=== PATIENT | female | born 2000 | race Caucasian/White ===

== ENCOUNTER 2020-01-21 10:21 | Observation (INO) | payer OTHER, SELFPAY ==
[2020-01-21 10:54] VITALS: BP 126/76; PULSE 114
[2020-01-21 11:00] VITALS: BP 129/72; PULSE 110
[2020-01-21 11:55] LABS: Add Urine Microscopic? YES; Appearance Urine Cloudy (Clear); Bacteria Urine Trace /hpf; Bilirubin Urine Negative (Negative); Blood Urine 1+ (Negative); Color Urine Yellow (Yellow); Glucose Urine UA Negative (Negative); Ketones Urine Negative (Negative); Leukocyte Esterase Ur 3+ LEU/UL (Negative); Mucus Urine Rare /lpf; Nitrate Urine Negative (Negative); Protein Urine Negative (Negative); Squamous Epithelial Cell Urine Many /hpf (Few); Urobilinogen Urine Negative mg/dL (<2.0); WBC Urine 16-20 /hpf
--- NOTE | 2020-01-21 11:59 | LDADM ---
This patient, Olga Gordon, was admitted to OB Post 116 on 01/21/20 at 10:21. Plans for labor, pain management and were discussed with patient. Patient/family oriented to hospital policies and general routines including ID bracelet, bed and alarms, visiting hours, pain management, procedures, bathroom and other care routines, personal items, smoking policy, room service/diet and guest tray routines, infant security routines, and visiting hours. Patient/Family are encouraged to report perceived risks to care and to ask questions if they do not understand what they are told or what they should do. See OBIX for further documentation.
--- NOTE | 2020-01-25 21:10 | PM.OBTRLD ---
OB - Triage/Final Diagnosis Evaluation Laboratory results: Laboratory Tests 01/21/20 11:39 Urine Color Yellow Urine Appearance Cloudy H Urine pH 8.0 Ur Specific [place] 1.010 Urine Protein Negative Urine Glucose (UA) Negative Urine Ketones Negative Ur Blood (Man) 1+ H Urine Nitrate Negative Urine Bilirubin Negative Urine Urobilinogen Negative Leukocyte Esterase Rfl 3+ H Urine RBC 6-10 H Urine WBC 16-20 H Ur Squamous Epith Cells Many H Urine Bacteria Trace Hyaline Casts 1-2 Urine Mucus Rare Final Diagnosis (1) Abdominal pain affecting : Code(s): O26.899 - Other specified related conditions, unspecified trimester; R10.9 - Unspecified abdominal pain Status: Acute
== END 2020-01-21 12:15 | disposition home or self-care (01) ==
PROVIDERS: Admitting Provider Obstetrics & Gynecology; Visit Provider Obstetrics & Gynecology
DX: O26.899 Other specified pregnancy related conditions, unspecified trimester (principal); R10.9 Unspecified abdominal pain; Z3A.00 Weeks of gestation of pregnancy not specified
CPT/HCPCS: 81001; 87086; 87088; G0378; G0379

== ENCOUNTER 2020-02-02 15:14 | Outpatient (CLI) | payer OTHER, SELFPAY ==
[2020-02-02 16:20] VITALS: BP 108/69; PULSE 109
== END 2020-02-02 15:15 | disposition home or self-care (01) ==
LOC: ANHOBOP 16:19
PROVIDERS: Visit Provider Obstetrics & Gynecology
DX: O42.90 Premature rupture of membranes, unspecified as to length of time between rupture and onset of labor, unspecified weeks of gestation (principal); Z3A.00 Weeks of gestation of pregnancy not specified
CPT/HCPCS: 59025; 84112

== ENCOUNTER 2020-02-13 22:14 | Observation (INO) | payer OTHER, SELFPAY ==
[2020-02-13 22:30] VITALS: TEMP 36.4; BMI 37.8
[2020-02-13 22:40] VITALS: BP 131/74; PULSE 120
[2020-02-13 22:45] VITALS: BP 126/71; PULSE 113
[2020-02-13 23:00] VITALS: BP 111/68; PULSE 113
[2020-02-13 23:37] LABS: Add Urine Microscopic? YES; Appearance Urine Clear (Clear); Bacteria Urine 4+ /hpf; Bilirubin Urine Negative (Negative); Blood Urine Negative (Negative); Color Urine Yellow (Yellow); Glucose Urine UA 3+ mg/dL (Negative); Ketones Urine Negative (Negative); Leukocyte Esterase Ur 1+ LEU/UL (NEGATIVE); Nitrate Urine Negative (Negative); Protein Urine Negative (Negative); RBC Urine 0-2 /hpf (0-2); Squamous Epithelial Cell Urine Many /hpf (Few); Urobilinogen Urine Negative mg/dL (<2.0); WBC Urine 0-3 /hpf (0-3)
--- NOTE | 2020-02-14 01:16 | OBADM ---
This patient, Olga Gordon, admitted to the OB room Labor/Delivery/Recovery 104 for observation. Patient/family oriented to hospital policies and general routines including ID bracelet, bed and alarms, visiting hours, pain management, procedures, bathroom and other care routines, personal items, smoking policy, room service/diet, and visiting hours. Patient/Family are encouraged to report perceived risks to care and to ask questions if they do not understand what they are told or what they should do.
--- NOTE | 2020-02-22 11:30 | P.PNOB_ITS ---
OB - Triage/Final Diagnosis Evaluation Laboratory results: Laboratory Tests 02/13/20 23:19 Urine Color Yellow Urine Appearance Clear Urine pH 6.0 Ur Specific [place] 1.010 Urine Protein Negative Urine Glucose (UA) 3+ H Urine Ketones Negative Ur Blood (Man) Negative Urine Nitrate Negative Urine Bilirubin Negative Urine Urobilinogen Negative Ur Leukocyte Esterase 1+ H Urine RBC 0-2 Urine WBC 0-3 Ur Squamous Epith Cells Many H Urine Bacteria 4+ H Final Diagnosis (1) Abdominal pain affecting : Code(s): O26.899 - Other specified related conditions, unspecified trimester; R10.9 - Unspecified abdominal pain Status: Acute
== END 2020-02-14 00:23 | disposition home or self-care (01) ==
PROVIDERS: Admitting Provider Obstetrics & Gynecology; Visit Provider Obstetrics & Gynecology
DX: O26.893 Other specified pregnancy related conditions, third trimester (principal); R10.9 Unspecified abdominal pain; Z3A.36 36 weeks gestation of pregnancy
CPT/HCPCS: 81001; 87086; 87088; G0378; G0379

== ENCOUNTER 2020-02-21 23:49 | Observation (INO) | payer OTHER, SELFPAY ==
--- NOTE | 2020-02-21 23:49 | OBADM ---
This patient, Olga Gordon, admitted to the OB room Labor/Delivery/Recovery 103 for observation. Patient/family oriented to hospital policies and general routines including ID bracelet, bed and alarms, visiting hours, pain management, procedures, bathroom and other care routines, personal items, smoking policy, room service/diet, and visiting hours. Patient/Family are encouraged to report perceived risks to care and to ask questions if they do not understand what they are told or what they should do.
[2020-02-22 00:03] VITALS: BP 127/82; PULSE 112; TEMP 36.6
--- NOTE | 2020-02-25 12:39 | PM.OBTRLD ---
OB - Triage/Final Diagnosis Final Diagnosis (1) False labor: Code(s): O47.9 - False labor, unspecified Status: Acute
== END 2020-02-22 02:31 | disposition home or self-care (01) ==
PROVIDERS: Admitting Provider Obstetrics & Gynecology; Visit Provider Obstetrics & Gynecology
DX: O47.1 False labor at or after 37 completed weeks of gestation (principal); Z3A.37 37 weeks gestation of pregnancy
CPT/HCPCS: G0378; G0379

== ENCOUNTER 2020-02-27 05:52 | Inpatient (IN) | payer OTHER, SELFPAY ==
[2020-02-27] VITALS (107 sets, daily range): BP systolic 65–148; BP diastolic 23–104; PULSE 27–216; RESP 18; TEMP 36.1–36.6; O2SAT 79–100; BMI 33.8
[2020-02-27 08:37] LABS: Basophils Percent Auto 0.3 % (0.2-1.2); Eosinophils Absolute Auto 0.1 K/mm3 (0-0.3); Eosinophils Percent Auto 0.4 % (0-4.4); Hematocrit 37.3 % (37.0-47.0); Hemoglobin 11.4 g/dL (12.0-15.0); Immature Granulocyte Absolute 0.18 K/mm3 (0.00-0.031); Immature Granulocyte Percent A 1.3 % (0-0.5); Lymphocytes Absolute Auto 2.51 K/mm3 (0.9-3.2); Lymphocytes Percent Auto 18.4 % (18.3-44.2); Mean Corpuscular HGB Conc 30.6 g/dl (32-36); Mean Corpuscular Hemoglobin 23.2 pg (26-34); Monocytes Absolute Auto 0.6 K/mm3 (0.1-0.6); Monocytes Percent Auto 4.6 % (2.6-8.5); Neutrophils Absolute Auto 10.2 K/mm3 (1.3-6.7); Platelet Count Result 232 k/mm3 (150-375); Red Blood Count 4.91 M/mm3 (4.2-5.4); Red Cell Distribution Width 16.3 % (11.5-14.5); White Blood Count 13.7 K/mm3 (4.5-10.0)
--- NOTE | 2020-02-27 08:45 | LDADM ---
This patient, Olga Gordon, was admitted to Labor/Delivery/Recovery 104 on 02/27/20 at 05:53. Plans for labor, pain management and were discussed with patient. Patient/family oriented to hospital policies and general routines including ID bracelet, bed and alarms, visiting hours, pain management, procedures, bathroom and other care routines, personal items, smoking policy, room service/diet and guest tray routines, security routines, and visiting hours. Patient/Family are encouraged to report perceived risks to care and to ask questions if they do not understand what they are told or what they should do. See OBIX for further documentation.
[2020-02-27] MEDS: LACTATED RINGERS 1,000 ML 125 ML IV CONT ×3 (09:57→12:31)
--- NOTE | 2020-02-27 10:51 | PM.IMHP ---
H&P: HPI History of Present Illness Date/Time: 02/27/20 10:51 Chief complaint: contractions Narrative: Olga Gordon is a 19 yo @ 38.1wks who presented to L&D with painful contractions since midnight and made change to 3/90/-3 (was 1.5/50/-3 in clinic earlier this week). She feels good movement. No LOF or bleeding. She has had no issues this . Review of Systems Constitutional: Constitutional: Denies body ache(s) and Denies chills Eyes: Eyes: Denies blurry vision Cardiovascular: Cardiovascular: Denies chest pain and Denies palpitations Respiratory: Respiratory: Denies cough and Denies dyspnea Gastrointestinal: Gastrointestinal: Reports abdominal pain, Denies nausea and Denies vomiting Genitourinary: Comments: no bleeding or leakage of fluid Neurologic: Denies headache(s) Psychiatric: Psychiatric: Denies anxiety PMFSH Social History Social History Smoking status: Never smoker Substance use: never Gender identity (if verbalized by the patient): Female Sexual Orientation (if Verbalized by the Patient): Straight or Heterosexual Spiritual care concerns: No Meds Home Medications and Allergies Home Medications Medication Instructions Recorded Confirmed Type PNV cmb#95-ferrous fumarate-FA 1 tablet PO DAILY 02/14/20 02/27/20 History [] nitrofurantoin monohyd/m-cryst 100 mg PO Q12H #14 cap 02/14/20 02/27/20 Rx [Macrobid] Allergies Allergy/AdvReac Type Severity Reaction Status Date / Time No Known Allergies Allergy Verified 02/14/20 00:06 Vital Signs Vital Signs - 24 hr 02/27/20 06:31 02/27/20 09:16 02/27/20 09:30 Pulse Rate 90 103 H 88 Blood Pressure 135/80 111/77 121/85 Pulse Oximetry 02/27/20 09:46 02/27/20 10:01 02/27/20 10:16 Pulse Rate 100 97 93 Blood Pressure 121/65 125/70 130/85 Pulse Oximetry 02/27/20 10:41 02/27/20 10:43 02/27/20 10:46 Pulse Rate 110 H 105 H Blood Pressure 148/98 H 128/87 Pulse Oximetry 100 100 02/27/20 10:47 08/08/20 10:48 Pulse Rate 104 H 108 H Blood Pressure 130/86 123/77 Pulse Oximetry Exam Const: General: in distress (with contractions) Resp: Effort & Inspection: normal respiratory effort Auscultation: clear to auscultation bilaterally Cardio: Rate: regular rate : Other: FHT's: 130's/ mod seferino/ + accels/ no decels - cat 1 [place]: ctx's q 3-5min Membranes: intact on admission; AROM, clear @ 1100 Cervix: 90/-2 @ 1100 presentation: cephalic Skin: General skin exam: normal color Neuro: Speech: normal speech Extrem: General: normal to inspection Psych: Affect: normal affect H&P: Results Labs Labs: Short CBC 02/27/20 Range/Units 08:23 WBC 13.7 H (4.5-10.0) K/mm3 Hgb 11.4 L (12.0-15.0) g/dL Hct 37.3 (37.0-47.0) % Plt Count 232 (150-375) k/mm3 Assessment and Plan Assessment and plan (1) : Qualifiers: Weeks of gestation: 38 weeks Qualified Code(s): Z3A.38 - 38 weeks gestation of Code(s): Z34.90 - Encounter for supervision of normal , unspecified, unspecified trimester Status: Acute Assessment and Plan: - Admit to L&D; early labor - Anesthesia for pain control - Will augment w/ pitocin per protocol and AROM - GBS negative; abx ppx not indicated - FHT reassuring; cat 1-- continue continuous monitoring
--- NOTE | 2020-02-27 10:56 | P.PNAN_ITS ---
Anes - Initial Pre Proc Eval Procedure: labor epidural Date/Time: 02/27/20 10:56 Surgeon: Barbara Bermudez MD Pre Op Diagnosis: labor pain Pre Op Diagnosis: contractions Patient Data Age: 19 Gender: F Height: 1.65 m Weight: 92.3 kg Last Vital Signs Pulse 98 02/27/20 10:55 BP 119/78 02/27/20 10:55 Pulse Ox 100 02/27/20 10:51 Allergies Allergy/AdvReac Type Severity Reaction Status Date / Time No Known Allergies Allergy Verified 02/14/20 00:06 Home Medications Medication Instructions Recorded Confirmed Type PNV cmb#95-ferrous fumarate-FA 1 tablet PO DAILY 02/14/20 02/27/20 History [] nitrofurantoin monohyd/m-cryst 100 mg PO Q12H #14 cap 02/14/20 02/27/20 Rx [Macrobid] Laboratory Tests 02/27/20 02/27/20 02/27/20 08:23 08:23 08:23 WBC 13.7 K/mm3 H K/mm3 (4.5-10.0) RBC 4.91 M/mm3 M/mm3 (4.2-5.4) Hgb 11.4 g/dL L g/dL (12.0-15.0) Hct 37.3 % % (37.0-47.0) MCV 76.0 fl L fl (80-100) MCH 23.2 pg L pg (26-34) MCHC 30.6 g/dl L g/dl (32-36) RDW 16.3 % H % (11.5-14.5) Plt Count 232 k/mm3 k/mm3 (150-375) MPV 10.0 fl fl (7.4-10.4) Immature Gran % (Auto) 1.3 % H % (0-0.5) Neut % (Auto) 75.0 % H % (45.5-73.1) Lymph % (Auto) 18.4 % % (18.3-44.2) [place] % (Auto) 4.6 % % (2.6-8.5) Eos % (Auto) 0.4 % % (0-4.4) Baso % (Auto) 0.3 % % (0.2-1.2) Lymph # (Auto) 2.51 K/mm3 K/mm3 (0.9-3.2) [place] # (Auto) 0.6 K/mm3 K/mm3 (0.1-0.6) Eos # (Auto) 0.1 K/mm3 K/mm3 (0-0.3) Baso # (Auto) 0.0 K/mm3 K/mm3 (0.0-0.1) Abs Immat Gran (auto) 0.18 K/mm3 H K/mm3 (0.00-0.031) Absolute Neuts (auto) 10.2 K/mm3 H K/mm3 (1.3-6.7) Absolute Nucleated RBC 0.0 K/mm3 K/mm3 (0.0-0.012) Nucleated RBC % 0.0 % % (0.0-0.2) RPR Pending Blood Type A Positive Antibody Screen Negative Patient hx anesthesia problems: none Family hx anesthesia problems: none PMFSH Social History Social History Smoking status: Never smoker Substance use: never Gender identity (if verbalized by the patient): Female Sexual Orientation (if Verbalized by the Patient): Straight or Heterosexual Spiritual care concerns: No Anes - Eval Final PreProcedure Day of Procedure 02/27/20 10:56 Patient weight: obese Informed Consent: The patient's anesthetic plan and its attendant risks and benefits were discussed with the patient/family/POA. Questions were solicited and answers provided to the satisfaction of the patient/family/POA.
[2020-02-27] MEDS: OXYTOCIN 30 UNITS/NS 500 ML 30 UNITS/500 ML BAG 6 UNITS IV CONT (12:31)
--- NOTE | 2020-02-27 15:56 | P.PCNOB_ITS ---
OB - Delivery Note Procedure Delivery date: 02/27/20 Procedure: Patient progressed to complete dilation and began pushing with good maternal effort. After approximately 15 minutes she delivered the head over intact perineum. No nuchal cord was palpated. The shoulders and body delivered without complications. The infant was immediately placed skin to skin and had spontaneous cry. The umbilical cord was clamped and cut. A segment of cord was collected for cord gases and the remaining cord blood was collected for typing. With gentle traction on the cord the placenta delivered without complications and Pitocin infusion was started. Bimanual massage showed good uterine tone. The cervix, vagina, and perineum were examined and a left periurethral laceration extending into the labia was noted, as well as a first- degree vaginal laceration. The periurethral laceration was repaired in a running fashion using 3-0 Vicryl. The vaginal laceration was repaired in a running fashion using 2 0 Vicryl and good hemostasis was noted. The uterus was palpated firm and minimal bleeding was noted. Sponge, lap, needle, and instrument counts were correct at the end of the procedure. Mom and baby were left bonding in the birthing suite in a stable condition. Intrapartal events: None Delivery augmentation: rupture of membranes and pitocin Delivery monitor: external FHT and internal uterine Route of delivery: Laceration description: Vaginal - 1st Degree (and a left periuretheral into labia) Delivery repair: vicryl Specimen: No Estimated blood loss (mL): 300 Anesthesia type: Epidural Disposition: floor [place] Baby Date of : 02/27/20 Time of : 15:31 Weeks of gestation at delivery: 38 Infant gender: Female Weight (pounds): 7 Weight (ounces): 1 presentation: vertex position: Left Occiput Anterior Placenta delivery description: Expressed cord vessel description: 3 Vessels score one minute: 8 score five minutes: 9
[2020-02-27] MEDS: OXYTOCIN 30 UNITS/NS 500 ML 30 UNITS/500 ML BAG 125 UNITS IV CONT (16:00)
[2020-02-27] MEDS: IBUPROFEN 600 MG TABLET PO (18:03)
--- NOTE | 2020-02-27 21:06 | PC.NURSE ---
1853 02/27/2020. Patient transferred to post room #282. Support person present. Oriented to unit, room, information board, rooming in, admission packet and security measures. Patient verbalizes understanding.
[2020-02-28 05:13] LABS: Hematocrit 27.7 % (37.0-47.0); Hemoglobin 8.3 g/dL (12.0-15.0)
[2020-02-28 07:50] VITALS: BP 128/73; PULSE 101; RESP 16; TEMP 37; O2SAT 99
[2020-02-28] MEDS: POLYSACCHARIDE IRON COMPLEX 150 MG CAPSULE PO ×2 (07:50→17:30)
[2020-02-28] MEDS: IBUPROFEN 600 MG TABLET PO ×2 (07:51→17:30)
[2020-02-28] MEDS: DOCUSATE SODIUM 100 MG CAPSULE PO (07:51)
--- NOTE | 2020-02-28 10:03 | WPDANLDPN2 ---
Anes-Prog Note L&D Date/Time: 02/28/20 10:03 Comfortable throughout: labor and delivery Neuraxial method: epidural Epidural/Spinal procedure site: clean & non-tender Neuro status: Neuro function grossly intact. Cardiovascular status: normal Respiratory status: normal Airway patency: baseline Mental status: baseline Post-Op hydration status: normal Vital Signs: Last Vital Signs Temp 37.0 C 02/28/20 07:50 Pulse 101 H 02/28/20 07:50 Resp 16 02/28/20 07:50 BP 128/73 02/28/20 07:50 Pulse Ox 99 02/28/20 07:50 I/O: Intake & Output 02/27/20 02/28/20 02/28/20 23:59 07:59 15:59 Intake Total 1000 Output Total 132 Balance 868 Post-procedural complaints: none Patient feedback: Patient satisfied with anesthetic care.
--- NOTE | 2020-02-28 11:00 | P.PNOB_ITS ---
OB - PN: Subj Subjective Date/time seen: 02/28/20 11:00 PPD#1 Olga is doing well today. She states her pain is controlled with PO pain meds. She is tolerating regular diet. She is ambulating w/o s/sx of anemia. She is voiding and passing flatus. Her bleeding has lessened. She is bottle feeding. She would like to be discharged home today. She denies CP, SOB, headache, vision changes, dizziness, palpitations, fever, chills, or N/V. OB - PN: Obj Data Labs CBC & Chem 7: 02/28/20 04:56 Labs: Laboratory Results - last 24 hr 02/28/20 04:56 Hgb 8.3 L D Hct 27.7 L OB - PN A/P Assessment and Plan (1) Normal vaginal delivery: Code(s): O80 - Encounter for full-term uncomplicated delivery Status: Acute (2) Anemia: Qualifiers: Anemia type: other cause Other causes of anemia: acute posthemorrhagic Qualified Code(s): D62 - Acute posthemorrhagic anemia Code(s): D64.9 - Anemia, unspecified Status: Acute Plan day: 1 Plan: routine care, discharge home and other (ER return precautions discussed. F/u in 4 weeks.) Time Spent With Patient Time: Total time spent is greater than 50% in coordination of care (as documented) at patient's floor/unit and/or counseling patient: Review of Systems Review of Systems: All systems reviewed & are unremarkable except as noted in HPI and below (HPI) Exam Const: General: comfortable, no acute distress, alert and awake Orientation/consciousness: patient oriented x3 Resp: Effort & Inspection: normal respiratory effort Auscultation: clear to auscultation bilaterally Cardio: Rate: regular rate GI: Auscultation: normal bowel sounds Other: non-distended, soft, non- tender : Other: fundus firm below umbilicus, normal lochia Psych: Appearance: grossly normal Affect: normal affect Attitude: cooperative Judgement: Good judgement present (Psych)
[2020-02-28] MEDS: WITCH HAZEL 40 PADS 1 PAD TOPICAL (17:30)
[2020-02-29 08:56] VITALS: BP 111/74; PULSE 98; RESP 20; TEMP 37.2; O2SAT 99
[2020-02-29 10:02] LABS: Rapid Plasma Reagin Non-Reactive (NonReactive)
--- NOTE | 2020-03-08 11:07 | PM.OBDSVD ---
DS: Admitting Diagnosis Admitting Diagnosis Admitting Diagnosis: contractions DS: Discharge Diagnosis Discharge Diagnosis (1) Normal vaginal delivery: Code(s): O80 - Encounter for full-term uncomplicated delivery Status: Acute (2) Anemia: Qualifiers: Anemia type: other cause Other causes of anemia: acute posthemorrhagic Qualified Code(s): D62 - Acute posthemorrhagic anemia Code(s): D64.9 - Anemia, unspecified Status: Acute OB - DS: Summary OB Procedures : None OB Procedures Intrapartum: Spontaneous Vag Delivery OB Procedures: : None Peripartum Data Infant Delivery Method: Natural Vaginal Episiotomy description: None complications: none [place] 1: Gender: Female Disposition of : home Status at Discharge Functional status at discharge: independent ambulation Overall status at discharge: patient is back to baseline Time Spent with Patient Time attestation: Total time spent providing and/or coordinating discharge services: Exam Const: General: comfortable, no acute distress, alert and awake Orientation/consciousness: patient oriented x3 Limitations: no limitations Resp: Effort & Inspection: normal respiratory effort Cardio: Rate: regular rate GI: Inspection: non-distended GI Palp: Yes Soft to palpation and No Tenderness to palpation present (GI) Psych: Appearance: grossly normal Affect: normal affect Attitude: cooperative Judgement: Good judgement present (Psych) Discharge Plan Discharge Attending physician on discharge: Barbara Bermudez Consulting providers: [place] Discharging Clinician: Barbara Bermudez Anticipated Discharge Date/Time: 02/28/20 17:00 Patient Disposition: Home, Self-Care Activity: pelvic rest Diet: regular Discharge Instructions: Education: Mom and Baby Guide Given to: Patient Follow-Up: Call your delivering provider's office for an appointment to be seen in: 3 weeks Mom and baby should come to the [facility] for the follow-up appointment. Appointment Date/Time:Saturday02/29/2020 at 9:00 am Call [phone] if you are unable to keep your appointment time. BREAST CARE: * Wear a snug supportive bra. * For engorgement discomfort: Bottle Feeding: * May apply ice packs EPISIOTOMY/PERINEAL CARE: * Until bleeding stops, use your frantz bottle after urinating * Change your pad frequently throughout the day * You may take sitz baths several times a day (fill your bathtub with warm water and soak for 20 minutes.) Do NOT bathe in the water * No tub baths until seen by your physician - You may shower ACTIVITY: * Rest as much as possible. * Do not exercise or lift anything heavier than your baby (such as laundry or other children.) * Avoid stairs or driving as much as possible. * Do not put anything into the vagina. No douching, tampons, or sexual activity until seen by physician. NOTIFY PHYSICIAN IF YOU HAVE ANY QUESTIONS OR IF ANY OF THE FOLLOWING SYMPTOMS OCCUR: * If your episiotomy or incision becomes red, swollen, or more painful than what you have experienced in the hospital. * If your vaginal bleeding becomes foul smelling. * If your vaginal bleeding becomes more heavy than a period or if your bleeding changes from pink to bright red. However, you may pass an occasional walnut-sized clot once or twice for the first week . * If you experience a sharp, shooting pain in you calves. * If you discover a hard, reddened area on your breast or if you experience flu-like symptoms. DIET: * Eat regular, well-balanced meals. * Drink plenty of fluids daily. If , drink to thirst. Follow-up/Referrals: Barbara Bermudez MD [Physician] - 4 Weeks Discharge Medications: New acetaminophen [Mapap (acetaminophen)] 325 mg Tablet 650 mg PO Q6H PRN (Reason: Mild Pain (1-3) Or Headache) 10 Day
== END 2020-02-28 18:35 | disposition home or self-care (01) | DRG 806 ==
LOC: ANHLDR 08:16 → ANHOB2 18:56
PROVIDERS: Admitting Provider Obstetrics & Gynecology; Visit Provider Obstetrics & Gynecology
DX: O99.214 Obesity complicating childbirth (principal); D62 Acute posthemorrhagic anemia; Z37.0 Single live birth; Z3A.38 38 weeks gestation of pregnancy; E66.9 Obesity, unspecified; O71.82 Other specified trauma to perineum and vulva; O90.81 Anemia of the puerperium; O70.0 First degree perineal laceration during delivery
CPT/HCPCS: 36415; 84112; 85014; 85018; 85025; 86592; 86850; 86900; 86901; A9270; J2590; J2795; J3010; J7120

== ENCOUNTER 2021-08-05 14:57 | Emergency (ER) | payer OTHER, SELFPAY ==
--- NOTE | ~2021-08-05 | XR_ITS ---
EXAMINATION: XR chest 1V portable EXAM DATE: 08/05/2021 18:19 INDICATION: COVID +, cp . TECHNIQUE: Portable AP frontal chest x-ray was obtained. There is no prior study for comparison. FINDINGS: The lungs are clear. There are no pleural effusions. The cardiomediastinal silhouette is within normal limits. There is no pneumothorax suspected. The bones and soft tissues are unremarkab le. IMPRESSION: No acute cardiopulmonary findings. Reviewed, dictated and finalized at location [facility]
--- NOTE | ~2021-08-05 | CT_ITS ---
EXAMINATION: CTA chest PE protocol EXAM DATE: 08/05/2021 20:22 INDICATION: CP, SOB, tachycardia, elevated dimer. TECHNIQUE: Spiral CTA of the chest (pulmonary arteries) was performed with 100 cc Omnipaque 350 intr avenous contrast injection. Images were acquired during the pulmonary arterial phase. Coronal maxi mum intensity projection 3D-reconstructions were created by the technologist on dedicated workstation . Axial, coronal and sagittal reformatted images were reviewed. The dose-length product (DLP) for t his examination was 401.12 mGy-cm. The exposure was tailored according to patient size (auto mA exp osure control), and iterative reconstruction (ASIR) was used as additional dose reduction technique. There is no prior study for comparison. FINDINGS: Pulmonary arteries are well opacified and without intraluminal filling defects. No thora cic aortic dissection. The lungs are clear. There are no pleural or pericardial effusions. Trach eobronchial tree is patent. There is no mediastinal, hilar or axillary lymphadenopathy. There is no pneumothorax. Heart normal in size. No evidence of coronary arterial calcification. There is s mall sliding gastroesophageal hiatal hernia. There is thoracic spondylosis without osteoblastic or o steolytic lesions identified. IMPRESSION: 1. No pulmonary emboli or acute cardiopulmonary findings. 2. Small gastroesophageal hiatal hernia. Reviewed, dictated and finalized at location . T COORDINATOR
[2021-08-05 15:15] VITALS: BP 140/94; PULSE 122; RESP 16; TEMP 37.2; O2SAT 98
[2021-08-05 17:38] VITALS: BP 122/83; PULSE 115; RESP 18; TEMP 37.2; O2SAT 98
--- NOTE | 2021-08-05 18:07 | ECG_ITS ---
Measurements Intervals [place] Rate: 123 P: 30 ND: 136 QRS: 3 QRSD: 98 T: 33 QT: 301 QTc: 432 Interpretive Statements SINUS TACHYCARDIA DELAYED PRECORDIAL R/S TRANSITION BORDERLINE T WAVE ABNORMALITY- INFERIOR LEADS BASELINE ARTIFACT- I, II, III, AVR, AVL, AVF, V1, V3-V6 ABNORMAL ECG Electronically Signed On 08-05-2021 20:03:55 [employer] by Mando Meadows D.O.
[2021-08-05] MEDS: LACTATED RINGERS 1,000 ML 999 ML IV CONT (18:20)
[2021-08-05] MEDS: ONDANSETRON INJ 4 MG/2 ML VIAL IV PUSH (18:28)
--- NOTE | 2021-08-05 18:44 | ED.URI ---
HPI - URI/Sore Throat General Chief Complaint: Upper Respiratory Infection <Patti Lynn PA-C - Last Filed: 08/05/21 21:12> Stated Complaint: vomiting, cough , pain with inspiration <Patti Lynn PA-C - Last Filed: 08/05/21 21:12> Time Seen by Provider: 08/05/21 18:06 <Patti Lynn PA-C - Last Filed: 08/05/21 21:12> Source: patient <Patti Lynn PA-C - Last Filed: 08/05/21 21:12> Mode of arrival: ambulatory <Patti Lynn PA-C - Last Filed: 08/05/21 21:12> Limitations: no limitations <Patti Lynn PA-C - Last Filed: 08/05/21 21:12> History of Present Illness HPI Narrative: This is a 21-year-old female that presents to the emergency department for cold symptoms x1 week. Reports cough, myalgia, chest pain, shortness of breath, nausea, and vomiting. She tested positive for COVID about a week ago. Denies fever or abdominal pain. <Patti Lynn PA-C - Last Filed: 08/05/21 21:12> Related Data Allergies/Adverse Reactions: Allergies Allergy/AdvReac Type Severity Reaction Status Date / Time No Known Allergies Allergy Verified 08/05/21 18:19 <Patti Lynn PA-C - Last Filed: 08/05/21 21:12> Review of Systems Review of Systems: CONSTITUTIONAL: Denies fever CARDIOVASCULAR: Reports chest pain. Denies edema. RESPIRATORY: Reports cough and dyspnea. GASTROINTESTINAL: Reports nausea and vomiting. Denies abdominal pain GENITOURINARY: Denies dysuria <Ptati Lynn PA-C - Last Filed: 08/05/21 21:12> All systems reviewed & are unremarkable except as noted in HPI and below <Patti Lynn PA-C - Last Filed: 08/05/21 21:12> PMFSH Past Medical History Medical History: Medical History (Updated 08/05/21 @ 21:11 by Patti Lynn PA-C) No active medical problems <Patti Lynn PA-C - Last Filed: 08/05/21 21:12> Social History Social History: Social History Smoking status: Never smoker Substance use: never Gender identity (if verbalized by the patient): Female Sexual Orientation (if Verbalized by the Patient): Straight or Heterosexual Spiritual care concerns: No <Patti Lynn PA-C - Last Filed: 08/05/21 21:12> Exam Narrative: GENERAL: Well-appearing, well-nourished, and in no acute distress. HEAD: Normocephalic, atraumatic. EYES: EOMI. ENT: Nares clear, no rhinorrhea or epistaxis. Mucous membranes moist. Oropharynx without tonsillar hypertrophy exudate or other lesions. Bilateral TMs pearly [place] non-bulging NECK: Supple. No adenopathy or masses. CHEST: Clear to auscultation. No respiratory distress. No wheezes rales or rhonchi HEART: Regular rate and rhythm. No murmur heard. Normal peripheral pulses. ABDOMEN: Soft, nontender, nondistended, normal active bowel sounds. EXTREMITIES: Normal range of motion. No edema. SKIN: Warm, dry, no rash. NEURO: No focal deficits. Alert and oriented x3. PSYCH: Normal mood and affect <Patti Lynn PA-C - Last Filed: 08/05/21 21:12> Course COMBAT CONTROL/PA Physician Supervision For this patient encounter, I reviewed the COMBAT CONTROL or PA documentation, treatment plan, and medical decision making <Siva Vasquez MD - Last Filed: 08/05/21 23:29> Vital Signs Vital signs: Vital Signs Temperature 99.0 F 08/05/21 15:15 Pulse Rate 122 H 08/05/21 15:15 Respiratory Rate 16 08/05/21 15:15 Blood Pressure 140/94 H 08/05/21 15:15 Pulse Oximetry 98 08/05/21 15:15 Temperature 99.0 F 08/05/21 17:38 Pulse Rate 91 08/05/21 22:17 Respiratory Rate 18 08/05/21 22:17 Blood Pressure 117/66 08/05/21 22:17 Pulse Oximetry 99 08/05/21 22:17 <Patti Lynn PA-C - Last Filed: 08/05/21 21:12> Vital Signs Temperature 99.0 F 08/05/21 15:15 Pulse Rate 122 H 08/05/21 15:15 Respiratory Rate 16 08/05/21 15:15 Blood Pressure 140/94 H 08/05/21 15:15 Pulse Oximetry 98 08/05/21 15:15 Temperature 99.0 F 08/05/21 17:38 Pulse Rate 91
[2021-08-05 18:45] LABS: Basophils Percent Auto 0.6 % (0.2-1.2); Eosinophils Percent Auto 0.3 % (0-4.4); Hematocrit 39.4 % (37.0-47.0); Hemoglobin 12.4 g/dL (12.0-15.0); Immature Granulocyte Absolute 0.04 K/mm3 (0.00-0.031); Immature Granulocyte Percent A 1.1 % (0-0.5); Lymphocytes Absolute Auto 1.07 K/mm3 (0.9-3.2); Lymphocytes Percent Auto 30.6 % (18.3-44.2); Mean Corpuscular HGB Conc 31.5 g/dl (32-36); Mean Corpuscular Hemoglobin 25.7 pg (26-34); Mean Corpuscular Volume 81.6 fl (80-100); Mean Platelet Volume 10.7 fl (7.4-10.4); Monocytes Absolute Auto 0.4 K/mm3 (0.1-0.6); Monocytes Percent Auto 10.9 % (2.6-8.5); Neutrophils Percent Auto 56.5 % (45.5-73.1); Platelet Count Result 190 k/mm3 (150-375); Red Blood Count 4.83 M/mm3 (4.2-5.4); Red Cell Distribution Width 15.3 % (11.5-14.5); White Blood Count 3.5 K/mm3 (4.5-10.0)
[2021-08-05 18:50] LABS: Add Urine Microscopic? YES; Appearance Urine Cloudy (Clear); Bacteria Urine Trace /hpf; Bilirubin Urine Negative (Negative); Blood Urine 1+ (Negative); Color Urine Yellow (Yellow); Glucose Urine UA Negative (Negative); Ketones Urine Trace mg/dL (Negative); Leukocyte Esterase Ur Negative LEU/UL (Negative); Mucus Urine Few /lpf; Nitrate Urine Negative (Negative); Protein Urine Negative (Negative); Specific Grav Ur 1.019 (1.001-1.035); Squamous Epithelial Cell Urine Moderate /hpf (Few); WBC Urine 0-3 /hpf
[2021-08-05 18:55] VITALS: O2SAT 100
[2021-08-05 18:55] LABS: Lipase 36 U/L (23-300); Partial Thromboplastin Time 29.7 SECONDS (22.3-36.8)
[2021-08-05 18:57] LABS: D Dimer 0.58 ug/mL (<0.48)
[2021-08-05 19:46] VITALS: BP 100/67; PULSE 100; RESP 20; O2SAT 100
[2021-08-05 20:00] LABS: Alanine Aminotransferase 20 U/L (4-35); Albumin Level 4.2 g/dL (3.5-5.1); Alkaline Phosphatase 64 U/L (38-126); Anion Gap 11 mmol/L (8-16); Aspartate Amino Transferase 28 U/L (14-36); Bilirubin,Total 0.3 mg/dL (0.2-1.3); Blood Urea Nitrogen 8 mg/dL (7-17); CRP 3.3 mg/dL (<1.0); Calcium 8.5 mg/dL (8.4-10.2); Carbon Dioxide 25 mmol/L (22-30); Chloride 100 mmol/L (98-107); Estimated CRCL calculation 106 ml/min; Estimated Glomerular Filt Rate > 60; Glucose 102 mg/dL (65-110); Lactate Dehydrogenase 515 U/L (313-618); Potassium 3.5 mmol/L (3.4-5.0); Sodium 136 mmol/L (137-145)
[2021-08-05 20:09] LABS: Troponin I < 0.012 ng/mL (0.000-0.034)
[2021-08-05 22:17] VITALS: BP 117/66; PULSE 91; RESP 18; O2SAT 99
== END 2021-08-05 22:18 | disposition home or self-care (01) ==
PROVIDERS: Physician Assistant; Emergency Provider Emergency Medicine
DX: U07.1 COVID-19 (principal); K44.9 Diaphragmatic hernia without obstruction or gangrene; R00.0 Tachycardia, unspecified; R94.31 Abnormal electrocardiogram [ECG] [EKG]
CPT/HCPCS: 36415; 71045; 71275; 80053; 81001; 81025; 82728; 83615; 83690; 84484; 85025; 85380; 85610; 85730; 86140; 93005; 96365; 96375; 99284; J0131; J2405; J7120; Q9967